=== PATIENT | female | born 1965 | race Caucasian/White ===

== ENCOUNTER → 2020-07-31 | Day surgery (SDC) | payer BC, OTHER ==
[~2020-07-31] VITALS: Ht 167.6 cm; Wt 111.0 kg
[~2020-07-31] MED LIST: ALEN70TA3 PO; ALPR1TAB6 PO; AMIT25TA PO; CHOL10004 PO; ESOM40CA PO; GABA300C18 PO; IV RINGERS,LACTATED 1000ML 1,000 ML IV SCH; LIDOCAINE 2% PF 5 ML VIAL. ONE; MIRT-7 PO; MULT-658 PO; PROP10TA PO; TRAZ-123 PO
[2020-07-31 06:41] VITALS: BP 125/80
[2020-07-31 07:44] VITALS: BP 116/80
== END | disposition home or self-care (01) ==
LOC: SURG 06:18
PROVIDERS: ATTEND Internal Medicine Gastroenterology
DX: R10.13 Epigastric pain (principal); K44.9 Diaphragmatic hernia without obstruction or gangrene; R11.2 Nausea with vomiting, unspecified; K21.9 Gastro-esophageal reflux disease without esophagitis; M19.90 Unspecified osteoarthritis, unspecified site; F32.9 Major depressive disorder, single episode, unspecified; Z85.3 Personal history of malignant neoplasm of breast; Z79.899 Other long term (current) drug therapy; Z98.890 Other specified postprocedural states
CPT/HCPCS: 43235